=== PATIENT | female | born 1965 ===

== ENCOUNTER 2021-01-13 08:30 | Inpatient (IN) | payer OTHER ==
[~2021-01-13] VITALS: Ht 165.1 cm; Wt 64.9 kg
[2021-01-13] MEDS ORDERED: SYNTHROID125 MCG PO (10:00)
[2021-01-16] MEDS ORDERED: CODE1TAB37 PO (12:30)
== END 2021-01-16 14:16 | disposition home or self-care (01) | DRG 741 ==
LOC: SURH 01-14 08:30 → O/R 01-15 12:30 → SURH 01-15 16:30 → SURG 01-15 18:20
PROVIDERS: ADMIT Obstetrics & Gynecology; ATTEND Obstetrics & Gynecology
PROC: 0UT2FZZ Resection of Bilateral Ovaries, Via Natural or Artificial Opening With Percutaneous Endoscopic Assistance (ICD-10-PCS; 2021-01-15)
PROC: 0UT7FZZ Resection of Bilateral Fallopian Tubes, Via Natural or Artificial Opening With Percutaneous Endoscopic Assistance (ICD-10-PCS; 2021-01-15)
PROC: 0TJB8ZZ Inspection of Bladder, Via Natural or Artificial Opening Endoscopic (ICD-10-PCS; 2021-01-15)
PROC: 0UT9FZZ Resection of Uterus, Via Natural or Artificial Opening With Percutaneous Endoscopic Assistance (ICD-10-PCS; principal; 2021-01-15 16:30)
DX: C54.1 Malignant neoplasm of endometrium (principal); N81.11 Cystocele, midline; N80.0 Endometriosis of uterus; D25.1 Intramural leiomyoma of uterus; D25.2 Subserosal leiomyoma of uterus; N83.11 Corpus luteum cyst of right ovary; N83.292 Other ovarian cyst, left side; E03.9 Hypothyroidism, unspecified